=== PATIENT | male | born 1995 | race Caucasian/White ===

== ENCOUNTER 2017-03-12 06:36 | Emergency (ER) | payer OTHER ==
[~2017-03-12] VITALS: Ht 172.7 cm; Wt 66.4 kg
[2017-03-12 06:48] VITALS: TEMP 36.7; Ht 172.7 cm; Wt 66.4 kg
[2017-03-12] MEDS ORDERED: OXCA300T PO (06:59)
[2017-03-12] MEDS ORDERED: OXCA150T2 PO (06:59)
[2017-03-12] MEDS ORDERED: RISP0.5T10 PO (06:59)
[2017-03-12] MEDS ORDERED: LISD60CA PO (06:59)
[2017-03-12] MEDS ORDERED: ONDANSETRON INJ 2 MG/ML 2 ML VIAL IV STA (07:07)
[2017-03-12] MEDS ORDERED: MoRPHine SULFATE 4 MG/ML 1 ML CARP\\VIAL IV STA (07:07)
--- NOTE | 2017-03-12 07:10 | EMERGENCY ROOM VISIT NOTE ---
History Report prepared by Rayray: Susie Douglas Under the Supervision of: Dr. Mathieu Barajas M.D. First contact with patient: 06:47 Chief Complaint: ABDOMINAL PAIN Stated Complaint: STOMACH/BACK ACHE,NAUSEA History of Present Illness The patient is a 21 year old white male with no past medical history who presents to the ED with a cc of right sided back pain beginning yesterday. Positive nausea, abdominal pain. Negative testicular pain and vomiting. He currently rates his discomfort as an 8/10 in severity. The patient denies any history of kidney stones. He reports normal urination and bowel movements. The patient denies any recent heavy lifting. He denies taking anything for his pain. The patient denies any allergies to medications. Source of History: patient Onset: yesterday Position: back (right sided) Symptom Intensity: 8/10 Timing: other (persistent) Associated Symptoms: + nausea, + abdominal pain, No vomiting Review of Systems See HPI for pertinent positives and negatives. A total of ten systems were reviewed and were otherwise negative. Past Medical & Surgical Surgical Problems: (1) S/P tonsillectomy Family History No pertinent family history stated. Current/Historical Medications Scheduled Lisdexamfetamine Dimesylate (Vyvanse), 60 MG PO DAILY Oxcarbazepine (Trileptal), 150 MG PO BID Oxcarbazepine (Trileptal), 300 MG PO BID Risperidone (Risperdal), 0.5 MG PO BID Allergies Coded Allergies: No Known Allergies (Unverified , 03/12/17) Physical Exam Vital Signs Date Time Temp Pulse Resp B/P (MAP) Pulse Ox O2 Delivery O2 Flow Rate FiO2 03/12/17 10:46 81 17 127/83 100 03/12/17 08:44 81 16 119/79 100 Room Air 03/12/17 06:48 36.7 93 16 137/73 100 Room Air Physical Exam GENERAL: Awake, alert, well-appearing, NAD HENT: Normocephalic, atraumatic. EYES: Normal conjunctiva. Sclera non-icteric. NECK: Supple. No nuchal rigidity. FROM. RESPIRATORY: CTAB, no rhonchi, wheezing, crackles CARDIAC: RRR, no MRG ABDOMEN: Soft, right lower quadrant pain, negative obturator and psoas, ND, BS+ MSK: No chest wall TTP, no LE edema, no CVA tenderness to palpation. NEURO: GCS 15, CN 2-12 intact, moves all 4s on command SKIN: No rash or jaundice noted. Medical Decision & Procedures ER Provider Diagnostic Interpretation: Radiology results as stated below per my review and radiologist interpretation: CHEST ONE VIEW PORTABLE CLINICAL HISTORY: Pain, radiating to the abdomen. COMPARISON STUDY: No previous studies for comparison. FINDINGS: The cardiac and mediastinal contours are normal. There is no evidence of focal pulmonary consolidation. There is no evidence of failure. No pleural effusions are visualized.[ No free intraperitoneal air is visualized. IMPRESSION: No active disease in the chest. Electronically signed by: Charles Conde M.D. 03/12/2017 7:38 AM Dictated Date/Time: 03/12/2017 7:38 AM The status of this report is Signed. Draft = Not yet reviewed or approved by Radiologist. Signed = Reviewed and approved by Radiologist. CT ABD/PELVIS IV AND ORAL CONT CLINICAL HISTORY: Diffuse abdominal pain. Nausea. COMPARISON STUDY: None. TECHNIQUE: Following the IV administration of 119 mL of Optiray-320, CT scan of the abdomen and pelvis was performed from the lung bases to the proximal femurs. Images are reviewed in the axial, sagittal, and coronal planes. IV contrast was administered without complication. A dose lowering technique was utilized adhering to the principles of ALARA. CT DOSE: 354.68 mGycm FINDINGS: Lower chest: The heart is normal in size and configuration, without pericardial effusion. The lung bases and pleural spaces are clear. Liver: The contrast-enhanced liver is normal in size, contour, and attenuation. There is no intrahepatic biliary ductal dilatation. The hepatic veins and portal veins are patent. Gallbladder: Unremarkable. Spleen: Normal in size and attenuation. Pancreas: Unremarkable. Adrenal glands: Unremarkable. Kidneys: There is a 26 mm right renal cyst. There is no hydronephrosis. Bowel: There are no transition zones to indicate bowel obstruction. There is a low-lying cecum. There is no evidence of acute appendicitis. There is no evidence of acute diverticulitis. There is a moderate amount of right colonic stool. Peritoneum: There is no intraperitoneal free air or abdominal ascites. Vasculature: The abdominal aorta is normal in course and caliber. Adenopathy: None. Pelvic viscera: The bladder, and pelvic viscera are unremarkable. Skeletal structures: No destructive osseous lesions are seen. IMPRESSION: 1. 26 mm right renal cyst 2. No evidence of bowel obstruction. No evidence of free air 3. No evidence of acute appendicitis. No evidence of acute diverticulitis 4. Moderate right colonic stool Electronically signed by: Charles Conde M.D. 03/12/2017 9:47 AM Dictated Date/Time: 03/12/2017 9:42 AM Laboratory Results 03/12/17 07:08 Red Blood Count 4.64, Mean Corpuscular Volume 92.9, Mean Corpuscular Hemoglobin 32.1, Mean Corpuscular Hemoglobin Concent 34.6, Mean Platelet Volume 9.5, Neutrophils (%) (Auto) 71.0, Lymphocytes (%) (Auto) 18.3, Monocytes (%) (Auto) 10.0, Eosinophils (%) (Auto) 0.4, Basophils (%) (Auto) 0.2, Neutrophils # (Auto ) 6.00, Lymphocytes # (Auto) 1.55, Monocytes # (Auto) 0.85, Eosinophils # (Auto ) 0.03, Basophils # (Auto) 0.02 03/12/17 07:08 Test 03/12/17 07:08 03/12/17 07:10 White Blood Count 8.46 K/uL (4.8-10.8) Red Blood Count 4.64 M/uL (4.7-6.1) Hemoglobin 14.9 g/dL (14.0-18.0) Hematocrit 43.1 % (42-52) Mean Corpuscular Volume 92.9 fL (80-100) Mean Corpuscular Hemoglobin 32.1 pg (25-34) Mean Corpuscular Hemoglobin Concent 34.6 g/dl (32-36) Platelet Count 283 K/uL (130-400) Mean Platelet Volume 9.5 fL (7.4-10.4) Neutrophils (%) (Auto) 71.0 % Lymphocytes (%) (Auto) 18.3 % Monocytes (%) (Auto) 10.0 % Eosinophils (%) (Auto) 0.4 % Basophils (%) (Auto) 0.2 % Neutrophils # (Auto) 6.00 K/uL (1.4-6.5) Lymphocytes # (Auto) 1.55 K/uL (1.2-3.4) Monocytes # (Auto) 0.85 K/uL (0.11-0.59) Eosinophils # (Auto) 0.03 K/uL (0-0.5) Basophils # (Auto) 0.02 K/uL (0-0.2) RDW Standard Deviation 40.4 fL (36.4-46.3) RDW Coefficient of Variation 11.9 % (11.5-14.5) Immature Granulocyte % (Auto) 0.1 % Immature Granulocyte # (Auto) 0.01 K/uL (0.00-0.02) Anion Gap 8.0 mmol/L (3-11) Est Creatinine Clear Calc Drug Dose 129.1 ml/min Estimated GFR () 144.4 Estimated GFR (Non- 124.6 BUN/Creatinine Ratio 9.0 (10-20) Calcium Level 9.0 mg/dl (8.5-10.1) Total Bilirubin 0.5 mg/dl (0.2-1) Direct Bilirubin mg/dl (0-0.2) Aspartate Amino Transf (AST/SGOT) 24 U/L (15-37) Alanine Aminotransferase (ALT/SGPT) 25 U/L (12-78) Alkaline Phosphatase 131 U/L (45-117) Total Protein 8.2 gm/dl (6.4-8.2) Albumin 4.5 gm/dl (3.4-5.0) Lipase 76 U/L (73-393) Chemistry Specimen Hemolysis Urine Color YELLOW Urine Appearance CLEAR (CLEAR) Urine pH 7.0 (4.5-7.5) Urine Specific [place] 1.030 (1.000-1.030) Urine Protein NEG (NEG) Urine Glucose (UA) NEG (NEG) Urine Ketones NEG (NEG) Urine Occult Blood NEG (NEG) Urine Nitrite NEG (NEG) Urine Bilirubin NEG (NEG) Urine Urobilinogen NEG (NEG) Urine Leukocyte Esterase NEG (NEG) Laboratory results reviewed by me ED Course 0658: The patient was evaluated in room A12B. A complete history and physical exam was performed. 1012: I reevaluated the patient and he is resting comfortably. I discussed the exam findings with him and I discussed the treatment plan. He verbalized complete understanding and agreement. He is ready to go home. Medical Decision Differential diagnosis: Etiologies such as appendicitis, diverticulitis, PUD, biliary pathology, UTI, pancreatitis, obstruction, mesenteric ischemia, aortic pathology, infections, inflammatory bowel disease, renal colic, as well as others were entertained. The patient is a 21 year old white male with no past medical history who presents to the ED with a cc of right sided back pain beginning yesterday. Patient was seen and evaluated the bedside and patient admitted complaining of some right lower quadrant right-sided flank pain beginning last evening. Patient states that it is fairly uncomfortable and he cannot sleep. Patient denies any trauma. Patient denies any history of kidney stones, hematuria, dysuria. Patient denies any scrotal penile pain. Patient is no prior medical problems. He's had recent bowel movement was able to urinate without issues. Patient did have blood work completed along with a CT of the abdomen pelvis with IV and oral contrast. Patient was given medications for symptom medic treatment as well. Patient had a normal white blood cell count. Patient and fairly unremarkable LFTs and lipase. Patient normal kidney fusion. Patient's urinalysis was negative for blood or infection. Patient had a negative chest x-ray. Patient refused any medications as he stated he wasn't having that much pain. Patient of the CT of the abdomen pelvis with oral and IV contrast which was negative for any acute surgical or medical pathology. Patient was feeling very well. Patient was told to take Motrin and Tylenol [id number] and could apply some moist heat to the area. This may be muscular skeletal or spasm in nature. Patient was deemed safe for follow-up and outpatient treatment. Patient was told to follow daily at bedtime if he had any more persistent symptoms. He was told he may return to the ER as well. Patient was given strict follow-up, discharge, and return precautions. All questions were answered. Patient was deemed suitable for outpatient follow-up at this time. Patient agreed with the plan of care and was safely discharged home. Medication Reconcilliation Current Medication List: was personally reviewed by me Impression Primary Impression: Right lower quadrant abdominal pain Scribe Attestation The scribe's documentation has been prepared under my direction and personally reviewed by me in its entirety. I confirm that the note above accurately reflects all work, treatment, procedures, and medical decision making performed by me. Departure Information Dispostion Home / Self-Care Referrals No Doctor, Assigned (PCP) [facility] Forms HOME CARE DOCUMENTATION FORM, IMPORTANT VISIT INFORMATION, School Instructions Patient Instructions My [facility], Strains Sprains Self Care Additional Instructions Please return to the emergency department if you have worsening or recurrent symptoms not amenable to at-home treatment. Please call for a follow-up appointment with her primary care physician. Please take your medications as prescribed. If you have other concerns and/or complaints please feel free to also call your primary care physician's office or return the ED for further evaluation, management, and treatment. You may take 600 mg Ibuprofen every 6 hours as needed for pain with food for no more than 2 consecutive days. You may take tylenol 1000 mg every 6 hours as needed for pain. You may take motrin and tylenol separately or at the same time. You may also apply moist heat to the area. You have been examined and treated today on an emergency basis only. This is not a substitute for, or an effort to provide, complete comprehensive medical care. It is impossible to recognize and treat all injuries or illnesses in a single emergency department visit. It is therefore important that you follow up closely with [facility], your PCP, and/or your specialist(s). Call as soon as possible for an appointment. Thank you for your time and consideration. I look forward to speaking with you again soon. Please don't hesitate to call us if you have any questions.
[2017-03-12 07:27] LABS: BASO % 0.2 %; BASO ABS # 0.02 K/uL (0-0.2); COMPLETE YES; EOS % 0.4 %; HEMATOCRIT 43.1 % (42-52); IG% 0.1 %; LYMPH % 18.3 %; LYMPH ABS # 1.55 K/uL (1.2-3.4); MEAN CELL VOLUME 92.9 fL (80-100); MEAN CORPUSCULAR HEMOGLOBIN 32.1 pg (25-34); MEAN CORPUSCULAR HGB CONC 34.6 g/dl (32-36); MEAN PLATELET VOLUME 9.5 fL (7.4-10.4); PLATELET COUNT 283 K/uL (130-400); RED BLOOD COUNT 4.64 M/uL (4.7-6.1); WHITE BLOOD COUNT 8.46 K/uL (4.8-10.8)
[2017-03-12 07:33] LABS: URINE APPEARANCE CLEAR (CLEAR); URINE BILIRUBIN NEG (NEG); URINE COLOR YELLOW; URINE NITRITE NEG (NEG); UROBILINOGEN NEG (NEG); ZZUR CULT IF INDIC CLEAN CATCH NO
--- NOTE | 2017-03-12 07:40 | DIAGNOSTIC IMAGING REPORT ---
CHEST ONE VIEW PORTABLE CLINICAL HISTORY: Pain, radiating to the abdomen. COMPARISON STUDY: No previous studies for comparison. FINDINGS: The cardiac and mediastinal contours are normal. There is no evidence of focal pulmonary consolidation. There is no evidence of failure. No pleural effusions are visualized.[ No free intraperitoneal air is visualized. IMPRESSION: No active disease in the chest. Electronically signed by: Charles Conde M.D. 03/12/2017 7:38 AM Dictated Date/Time: 03/12/2017 7:38 AM
[2017-03-12 07:44] LABS: MANUAL MICROSCOPIC REQUIRED? NO; REVIEW REQ? NO
[2017-03-12 07:48] LABS: ALKALINE PHOSPHATASE 131 U/L (45-117); ALT/SGPT 25 U/L (12-78); AST/SGOT 24 U/L (15-37); BLOOD UREA NITROGEN 8 mg/dl (7-18); CARBON DIOXIDE 28 mmol/L (21-32); CHLORIDE 101 mmol/L (98-107); CREATININE 0.85 mg/dl (0.60-1.40); GLUCOSE 108 mg/dl (70-99); POTASSIUM 3.9 mmol/L (3.5-5.1); SODIUM 136 mmol/L (136-145)
--- NOTE | 2017-03-12 09:48 | DIAGNOSTIC IMAGING REPORT ---
CT ABD/PELVIS IV AND ORAL CONT CLINICAL HISTORY: Diffuse abdominal pain. Nausea. COMPARISON STUDY: None. TECHNIQUE: Following the IV administration of 119 mL of Optiray-320, CT scan of the abdomen and pelvis was performed from the lung bases to the proximal femurs. Images are reviewed in the axial, sagittal, and coronal planes. IV contrast was administered without complication. A dose lowering technique was utilized adhering to the principles of ALARA. CT DOSE: 354.68 mGycm FINDINGS: Lower chest: The heart is normal in size and configuration, without pericardial effusion. The lung bases and pleural spaces are clear. Liver: The contrast-enhanced liver is normal in size, contour, and attenuation. There is no intrahepatic biliary ductal dilatation. The hepatic veins and portal veins are patent. Gallbladder: Unremarkable. Spleen: Normal in size and attenuation. Pancreas: Unremarkable. Adrenal glands: Unremarkable. Kidneys: There is a 26 mm right renal cyst. There is no hydronephrosis. Bowel: There are no transition zones to indicate bowel obstruction. There is a low-lying cecum. There is no evidence of acute appendicitis. There is no evidence of acute diverticulitis. There is a moderate amount of right colonic stool. Peritoneum: There is no intraperitoneal free air or abdominal ascites. Vasculature: The abdominal aorta is normal in course and caliber. Adenopathy: None. Pelvic viscera: The bladder, and pelvic viscera are unremarkable. Skeletal structures: No destructive osseous lesions are seen. IMPRESSION: 1. 26 mm right renal cyst 2. No evidence of bowel obstruction. No evidence of free air 3. No evidence of acute appendicitis. No evidence of acute diverticulitis 4. Moderate right colonic stool Electronically signed by: Charles Conde M.D. 03/12/2017 9:47 AM Dictated Date/Time: 03/12/2017 9:42 AM
[2017-03-12 10:46] VITALS: BP 127/83; PULSE 81; O2SAT 100
== END 2017-03-12 10:48 | disposition home or self-care (01) ==
LOC: C.EDB 06:37 → C.EDA 10:48
DX: R10.31 Right lower quadrant pain (principal); R11.0 Nausea; Z90.89 Acquired absence of other organs